=== PATIENT | female | born 1995 | race Caucasian/White ===

== ENCOUNTER 2022-12-17 21:20 | Observation (INO) | payer BC ==
[~2022-12-17] VITALS: Ht 157.5 cm; Wt 79.8 kg
[2022-12-17] MEDS ORDERED: PNV91TAB8 PO (22:06)
[2022-12-17 22:12] VITALS: BP 119/71
== END 2022-12-17 22:45 | disposition home or self-care (01) ==
LOC: MLD 21:20
PROVIDERS: ADMIT Obstetrics & Gynecology; ATTEND Obstetrics & Gynecology
DX: O47.1 False labor at or after 37 completed weeks of gestation (principal); Z3A.41 41 weeks gestation of pregnancy
CPT/HCPCS: 59025; 76819; 81000; G0378; Q0092

== ENCOUNTER 2022-12-18 15:24 | Inpatient (IN) | payer BC ==
[~2022-12-18] VITALS: Ht 157.5 cm; Wt 79.8 kg
[~2022-12-18 15:24] MED LIST: PNV91TAB8 PO
[2022-12-18 15:40] VITALS: BP 119/72
== END 2022-12-18 16:40 | disposition home or self-care (01) | DRG 833 ==
LOC: OBSVTOIN 15:24 → MLD 15:24
PROVIDERS: ADMIT Obstetrics & Gynecology; ATTEND Obstetrics & Gynecology
DX: O47.9 False labor, unspecified (principal); Z3A.41 41 weeks gestation of pregnancy; Z20.822 Contact with and (suspected) exposure to COVID-19
CPT/HCPCS: 59025

== ENCOUNTER 2022-12-19 02:15 | Inpatient (IN) | payer BC ==
[~2022-12-19] VITALS: Ht 157.5 cm; Wt 79.8 kg
[2022-12-19 02:41] VITALS: BP 121/65
[2022-12-19] MEDS ORDERED: METHYLERGONOVINE 0.2 MG/ML AMP IM PRN (03:00)
[2022-12-19] MEDS ORDERED: ONDANSETRON 4 MG/2 ML VIAL IVP PRN (03:00)
[2022-12-19] MEDS ORDERED: CARBOPROST 250 MCG/ML AMP IM PRN (03:00)
[2022-12-19] MEDS ORDERED: MORPHINE SULFATE 4 MG/ML SYR IVP PRN (03:00)
[2022-12-19] MEDS ORDERED: LACTATED RINGERS 500 ML IV SCH (03:00)
[2022-12-19] MEDS: LACTATED RINGERS 1,000 ML IV SCH ×5 (03:15→23:03)
[2022-12-19 03:41] LABS: BASOPHILS % (AUTO) 0.3 % (0.0-2.0); EOSINOPHILS % (AUTO) 0.2 % (0.0-4.0); HEMATOCRIT 40.1 % (36-48); HEMOGLOBIN 13.3 g/dL (12.0-16.0); LYMPHOCYTES # (AUTO) 2.5 K/uL (2.5-16.5); LYMPHOCYTES % (AUTO) 18.8 % (20.5-51.1); MEAN CORPUSCULAR HEMOGLOBIN 28 pg (27-31); MEAN CORPUSCULAR HGB CONC 33 g/dL (33-37); MEAN CORPUSCULAR VOLUME 84.9 fL (80-94); MONOCYTES # (AUTO) 0.8 K/uL (0.8-1.0); MONOCYTES % (AUTO) 5.9 % (1.7-9.3); NEUTROPHILS # (AUTO) 9.8 K/uL (1.8-7.7); NEUTROPHILS % (AUTO) 74.8 % (42.2-75.2); PLATELET COUNT (AUTO) 153 K/uL (140-450); RED BLOOD CELL COUNT(AUTO) 4.72 MIL/uL (4.20-5.40); RED CELL DISTRIBUTION WIDTH 14.8 % (11.6-13.7); WHITE BLOOD COUNT (AUTO) 13.1 K/uL (4.8-10.8)
[2022-12-19 03:58] LABS: APPEARANCE,URINE CLEAR (CLEAR); BILIRUBIN,URINE NEGATIVE (NEGATIVE); BLOOD, URINE TRACE-I (NEGATIVE); COLOR,URINE YELLOW (YELLOW); LEUKOCYTE ESTERASE ,URINE 1+ (NEGATIVE); NITRITE, URINE NEGATIVE (NEGATIVE); PH,URINE 6.5 (5.0-9.0); UGLUCOSE NEGATIVE (NEGATIVE)
[2022-12-19 03:59] LABS: PROTHROMBIN TIME 9.6 secs (10.8-13.4)
[2022-12-19 04:03] LABS: RBC,URINE 0-5 /HPF (0-5)
[2022-12-19 04:06] LABS: ALBUMIN 3.1 g/dL (3.4-5.0); ANION GAP 15.6 (8-16); CARBON DIOXIDE 24.3 mmol/L (21-32); CREATININE 0.7 mg/dL (0.6-1.3); POTASSIUM 3.9 mmol/L (3.5-5.1); TOTAL BILIRUBIN 0.8 mg/dL (0.0-1.0)
--- NOTE | 2022-12-19 09:09 | NUR ---
PATIENT HAS BEEN SCREENED AND CATEGORIZED LOW NUTRITION RISK. PATIENT WILL BE SEEN WITHIN 7 DAYS OF ADMISSION. 12/26/22 REVIEWED BY FUAD [address]
[2022-12-19] MEDS ORDERED: ROPIVACAINE 0.2%/NS PREMIX 200 ML EPI ONE ×2 (11:36→18:22)
[2022-12-19] MEDS ORDERED: OXYTOCIN 20 UNITS in LACTATED RINGERS 1,000 ML IV SCH (12:00)
[2022-12-19] MEDS ORDERED: OXYTOCIN 20 UNITS/LR PREMIX 1,000 ML IV ONE (12:30)
[2022-12-19] MEDS ORDERED: ROPIVACAINE 0.2%/NS PREMIX 100 ML EPI SCH (14:05)
[2022-12-20] MEDS: LACTATED RINGERS 1,000 ML IV SCH ×2 (04:38→09:29)
[2022-12-20] MEDS ORDERED: ROPIVACAINE 0.2%/NS PREMIX 200 ML EPI ONE (06:21)
[2022-12-20] MEDS ORDERED: AMPICILLIN 2,000 MG VIAL ONE (07:20)
[2022-12-20] MEDS ORDERED: AMPICILLIN 2,000 MG in NACL 0.9% 100 ML IV SCH (08:00)
[2022-12-20] MEDS ORDERED: AMPICILLIN 1,000 MG VIAL ONE (11:07)
[2022-12-20] MEDS ORDERED: AMPICILLIN 1,000 MG in NACL 0.9% 50 ML IV SCH (12:00)
[2022-12-20] MEDS ORDERED: MORPHINE PRES FREE 10 MG/10 ML AMP IV ONE (12:41)
[2022-12-20] MEDS ORDERED: ceFAZolin 2,000 MG VIAL ONE ×2 (12:46→14:40)
[2022-12-20] MEDS ORDERED: OXYTOCIN 20 UNITS/LR PREMIX 1,000 ML IV ONE ×2 (13:36→22:50)
[2022-12-20] MEDS ORDERED: fentaNYL citrate 0.05 MG/ML VIAL ONE (14:32)
[2022-12-20] MEDS ORDERED: PROPOFOL 200 MG/20 ML VIAL IV ONE (14:40)
[2022-12-20] MEDS ORDERED: ONDANSETRON 4 MG/2 ML VIAL ONE (14:40)
[2022-12-20] MEDS ORDERED: ePHEDrine 50 MG/ML VIAL ONE (14:40)
[2022-12-20] MEDS ORDERED: METHYLERGONOVINE 0.2 MG/ML AMP ONE (14:40)
[2022-12-20] MEDS ORDERED: fentaNYL citrate 0.05 MG/ML - 50mL vial IV ONE (14:40)
[2022-12-20] MEDS ORDERED: ONDANSETRON 4 MG/2 ML VIAL IVP PRN ×2 (14:45→15:55)
[2022-12-20] MEDS ORDERED: diphenhydrAMINE 50 MG/ML VIAL IVP PRN ×2 (14:45→15:50)
[2022-12-20] MEDS ORDERED: HYDROmorphone 1 MG/ML AMP IVP PRN (14:45)
[2022-12-20] MEDS ORDERED: LACTATED RINGERS 1,000 ML IV SCH (14:45)
[2022-12-20] MEDS ORDERED: MEPERIDINE 25 MG/ML SYR IVP PRN (14:45)
[2022-12-20] MEDS ORDERED: oxyCODONE/APAP 5/325 MG 1 TAB TAB PO PRN ×2 (15:50)
[2022-12-20] MEDS ORDERED: METHYLERGONOVINE 0.2 MG/ML AMP IM PRN (15:50)
[2022-12-20] MEDS ORDERED: MEASLES, MUMPS, AND RUBELLA 1 VIAL SQVAC ONE (15:50)
[2022-12-20] MEDS ORDERED: NALOXONE 0.4 MG/ML VIAL IVP PRN (15:55)
[2022-12-20] MEDS: KETOROLAC 30 MG/ML VIAL IVP SCH ×2 (18:00→23:58)
[2022-12-20] MEDS: OXYTOCIN 20 UNITS in LACTATED RINGERS 1,000 ML IV SCH (23:33)
[2022-12-21] MEDS: KETOROLAC 30 MG/ML VIAL IVP SCH (06:03)
[2022-12-21] MEDS ORDERED: OXYTOCIN 20 UNITS/LR PREMIX 1,000 ML IV ONE (06:57)
[2022-12-21] MEDS: OXYTOCIN 20 UNITS in LACTATED RINGERS 1,000 ML IV SCH (07:49)
[2022-12-21] MEDS: bisacodyL 10 MG SUPP RC SCH (09:00)
[2022-12-21] MEDS: SIMETHICONE 80 MG TAB.CHEW PO PRN ×2 (10:41→16:43)
[2022-12-21 10:48] LABS: BASOPHILS # (AUTO) 0.1 K/uL (0.00-0.22); BASOPHILS % (AUTO) 0.3 % (0.0-2.0); EOSINOPHILS % (AUTO) 0.2 % (0.0-4.0); HEMATOCRIT 32.5 % (36-48); HEMOGLOBIN 10.8 g/dL (12.0-16.0); LYMPHOCYTES # (AUTO) 2.3 K/uL (2.5-16.5); LYMPHOCYTES % (AUTO) 13.3 % (20.5-51.1); MEAN CORPUSCULAR HEMOGLOBIN 29 pg (27-31); MEAN CORPUSCULAR HGB CONC 33 g/dL (33-37); MEAN CORPUSCULAR VOLUME 86.2 fL (80-94); MONOCYTES # (AUTO) 1.2 K/uL (0.8-1.0); NEUTROPHILS # (AUTO) 13.8 K/uL (1.8-7.7); NEUTROPHILS % (AUTO) 79.2 % (42.2-75.2); PLATELET COUNT (AUTO) 133 K/uL (140-450); RED BLOOD CELL COUNT(AUTO) 3.76 MIL/uL (4.20-5.40); RED CELL DISTRIBUTION WIDTH 14.4 % (11.6-13.7); WHITE BLOOD COUNT (AUTO) 17.5 K/uL (4.8-10.8)
[2022-12-21] MEDS: IBUPROFEN 600 MG TAB PO SCH ×2 (14:04→20:34)
[2022-12-21] MEDS ORDERED: CAMERA MC ONE (19:27)
[2022-12-22] MEDS: IBUPROFEN 600 MG TAB PO SCH ×3 (02:01→13:55)
[2022-12-22] MEDS: SIMETHICONE 80 MG TAB.CHEW PO PRN (08:04)
[2022-12-22] MEDS: bisacodyL 10 MG SUPP RC SCH (11:21)
== END 2022-12-22 16:00 | disposition home or self-care (01) | DRG 788 ==
LOC: MLD 02:15 → MFCC 12-20 15:30
PROVIDERS: ADMIT Obstetrics & Gynecology; ATTEND Obstetrics & Gynecology
PROC: 10D00Z1 Extraction of Products of Conception, Low, Open Approach (ICD-10-PCS; principal; 2022-12-21)
DX: O48.0 Post-term pregnancy (principal); O69.81X0 Labor and delivery complicated by cord around neck, without compression, not applicable or unspecified; O77.0 Labor and delivery complicated by meconium in amniotic fluid; Z37.0 Single live birth; Z3A.41 41 weeks gestation of pregnancy; O90.81 Anemia of the puerperium; D64.9 Anemia, unspecified; O62.0 Primary inadequate contractions
CPT/HCPCS: 36415; 51702; 80053; 81001; 85025; 85610; 85730; 86592; 86886; 86900; 86901; 87086; 87340; J0290; J0690; J1885; J2210; J2270; J2405; J2590; J2704; J2795; J3010; J7060; J7120